=== PATIENT | male | born 1990 | race Caucasian/White ===

== ENCOUNTER 2017-04-21 20:20 | Emergency (ER) | payer BC, OTHER ==
[2017-04-21] MEDS ORDERED: Acetaminophen/HYDROcodone 325-10 MG Tab PO ONE (20:46)
--- NOTE | 2017-04-21 20:50 | EDM.PDOC ---
ED HPI GENERAL MEDICAL PROBLEM - General Chief Complaint: Upper Extremity Injury/Pain Stated Complaint: PT HURT LT ARM Time Seen by Provider: 04/21/17 20:44 - History of Present Illness INITIAL COMMENTS - FREE TEXT/NARRATIVE: HISTORY AND PHYSICAL: History of present illness: Patient 21 sutural white male presents with a concern of left arm injury this occurred when he was stepped on by a bull he's had a prior humerus fracture he thinks he may have reinjured it in the form of fracture he denies any other trauma or concern. Review of systems: As per history of present illness and below otherwise all systems reviewed and negative. Past medical history: As per history of present illness and as reviewed below otherwise noncontributory. Surgical history: As per history of present illness and as reviewed below otherwise noncontributory. Social history: No reported history of drug or alcohol abuse. Family history: As per history of present illness and as reviewed below otherwise noncontributory. Physical exam: HEENT: Atraumatic, normocephalic, pupils reactive, negative for conjunctival pallor or scleral icterus, mucous membranes moist, throat clear, neck supple, nontender, trachea midline. Lungs: Clear to auscultation, breath sounds equal bilaterally, chest nontender. Heart: S1S2, regular, negative for clicks, rubs, or JVD. Abdomen: Soft, nondistended, nontender. Negative for masses or hepatosplenomegaly. Negative for costovertebral tenderness. Pelvis: Stable nontender. Genitourinary: Deferred. Rectal: Deferred. Extremities: Patient in a sling does have deformity of his left humerus that he states was related to the prior fracture but does have pain in that same region on exam but claims the primary pain is more in his elbow. there is no gross instability although exam is limited by pain neurovascular exam in [facility] is unremarkable Neuro: Awake, alert, oriented. Cranial nerves II through XII unremarkable. Cerebellum unremarkable. Motor and sensory unremarkable throughout. Exam nonfocal. Diagnostics: X-ray left humerus Therapeutics: Hydrocodone 10 mg by mouth Impression: #1 acute left upper extremity injury Definitive disposition and diagnosis as appropriate pending reevaluation and review of above. Left Arm Pain Score (Numeric/FACES): 9 - Related Data Allergies Allergy/AdvReac Type Severity Reaction Status Date / Time No Known Allergies Allergy Verified 04/21/17 20:31 Home Meds: Home Meds . [No Known Home Meds] 04/21/17 [History] Past Medical History - Past Health History Medical/Surgical History: Denies Medical/Surgical History Social & Family History - Family History Family Medical History: Noncontributory - Tobacco Use Smoking Status *Q: Never Smoker Second Hand Smoke Exposure: Yes - Caffeine Use Caffeine Use: Reports: Coffee Caffeine Use Comment: 1/2 cup/day - Recreational Drug Use Recreational Drug Use: No Review of Systems - Review of Systems Review Of Systems: See Below ED EXAM, GENERAL - Physical Exam Exam: See Below (See dictation) Course - Vital Signs Text/Narrative:: Patient's x-ray demonstrates an acute olecranon fracture with significant displacement approximately 2-3 cm case was discussed with orthopedic surgery outdoor recreation specialist Dr. Fox who recommends long-arm posterior mold pain medication and follow -up in clinic in a.m. patient is from [facility] and request discharge for follow-up with his private orthopedic surgeon he will be given appropriate local referral hydrocodone for pain posterior mold and sling as directed and follow-up NEAL with orthopedic surgeon of choice whether it be local or back home he is to return as needed as discussed Last Recorded V/S: Last Vital Signs Temp 37.0 C 04/21/17 20:27 Pulse 92 04/21/17 20:27 Resp 20 04/21/17 20:27 BP 122/73 04/21/17 20:27 Pulse Ox 95 04/21/17 20:27 - Orders/Labs/Meds Orders: Active Orders 24 hr Category Date Time Status Humerus Lt [CR] Stat Exams 04/21/17 20:45 Taken Meds: Medications Discontinued Medications Generic Name Dose Route Start Last Admin Trade Name Freq PRN Reason Stop Dose Admin Hydrocodone Bitart/Acetaminophen 1 tab 04/21/17 20:46 04/21/17 21:01 [place] 325-10 Mg PO 04/21/17 20:47 1 tab ONETIME ONE Administration Departure - Departure Time of Disposition: 22:09 Disposition: Home, Self-Care 01 Condition: Good Clinical Impression: Olecranon fracture - Discharge Information Forms: ED Department Discharge Additional Instructions: The following information is given to patients seen in the emergency department who are being discharged to home. This information is to outline your options for follow-up care. We provide all patients seen in our emergency department with a follow-up referral. The need for follow-up, as well as the timing and circumstances, are variable depending upon the specifics of your emergency department visit. If you don't have a primary care physician on staff, we will provide you with a referral. We always advise you to contact your personal physician following an emergency department visit to inform them of the circumstance of the visit and for follow-up with them and/or the need for any referrals to a consulting specialist. The emergency department will also refer you to a specialist when appropriate. This referral assures that you have the opportunity for followup care with a specialist. All of these measure are taken in an effort to provide you with optimal care, which includes your followup. Under all circumstances we always encourage you to contact your private physician who remains a resource for coordinating your care. When calling for followup care, please make the office aware that this follow-up is from your recent emergency room visit. If for any reason you are refused follow-up, please contact the [facility] emergency department at and asked to speak to the emergency department charge nurse. [facility] Professional [address], [address] [place] [address] Hydrocodone as prescribed posterior mold and sling as directed follow-up orthopedic surgery as discussed return as needed as discussed - My Orders Last 24 Hours: My Active Orders 04/21/17 20:45 Humerus Lt [CR] Stat - Assessment/Plan Last 24 Hours: My Active Orders 04/21/17 20:45 Humerus Lt [CR] Stat
[2017-04-21 22:30] VITALS: BP 108/72
--- NOTE | 2017-04-22 12:08 | CR ---
EXAM DATE: 04/21/17 PATIENT'S AGE: 27 Patient: ELAINE WOODWARD Facility: [place], [place] Site . Site : 1990 Study: XRay Extremity humerus [id number]/21/2017 9:27:20 PM Ordering Physician: Doctor Duenas Final Report: INDICATION: Trauma. Bull stepped on arm. COMPARISON: None. FINDINGS/IMPRESSION: Left humerus, 4 views. There is an acute-appearing and displaced fracture of the olecranon of the left elbow. There are age-indeterminate bone densities anterior to the distal humerus on the lateral view of the distal humerus. Dedicated radiographs of the left elbow are recommended for further evaluation. There is an old healed fracture of the mid to distal shaft of the left humerus. No dislocation is evident at the shoulder. Included left ribs appear intact. Dictated by Renzo Moulton MD @ 04/21/2017 9:54:42 PM Dictated by: Renzo Moulton MD @ 04/21/2017 21:55:08 (Electronic Signature) Report Signed by Proxy. [facility]
== END 2017-04-21 22:35 | disposition home or self-care (01) ==
LOC: MW.ED 20:20
DX: S52.022A Displaced fracture of olecranon process without intraarticular extension of left ulna, initial encounter for closed fracture (principal); W55.29XA Other contact with cow, initial encounter
CPT/HCPCS: 73060; 99283; A9270; 29105